=== PATIENT | female | born 1950 | race Caucasian/White ===

== ENCOUNTER 2017-12-15 16:09 | Emergency (ER) | payer OTHER, BC ==
[~2017-12-15] VITALS: Ht 160 cm; Wt 77.7 kg
[~2017-12-15 16:09] MED LIST: ASPIR 8181 M1 PO; ASPIR-LOW81 M1 PO; CELEXA40 MG PO; CRESTOR20 MG PO; CYMBALTA60 MG PO; DESYREL 150 MG150 MG PO; GAS-X125 MG PO; HYDROCHLOROTHIA25 MG PO; LIPITOR20 MG PO; LOTENSIN10 MG PO; Mylicon,Mylanta Gas, PO; NABUMETONE500 MG PO; NIACIN750 MG PO; NIASPAN,SLO-NI750 MG PO; NORCO 7.5/321 TABLET PO; PAIN & FEVER500 MG PO; PANTOPRAZOLE SO40 MG PO; PRILOSEC20 MG PO; PROMETHAZINE HC25 M1 PO; Phenergan PO; Protonix PO; SPIRIVA1 INHALATI IH; Tylenol Extra Streng PO; VITAMIN D-32000 UNI1 PO; VITAMIN D1000 UNIT PO; ZICAM BOTH NARES; [UNRECOGNIZED DRUG - REMARK] TP
[2017-12-15 16:45] LABS: HEMATOCRIT 35.5 % (36.0-46.0); MCH 27.3 PG (29.0-34.0); MCHC 33.8 G/DL (30.0-36.0); MCV 80.9 FL (83-99); PLATELET COUNT 295 K/uL (156-360); RBC DIS.WIDTH-CV 13.9 % (11.8-14.6); RBC DIS.WIDTH-SD 40.8 % (39-53); RED BLOOD COUNT 4.39 M/uL (3.80-5.20); WHITE BLOOD COUNT 10.4 K/uL (4.1-10.2)
[2017-12-15 16:56] LABS: ALBUMIN 4.2 g/dL (3.2-4.8); CHLORIDE 94 mEq/L (99-109); POTASSIUM 3.5 mEq/L (3.7-5.4); SODIUM 131 mEq/L (136-147)
[2017-12-15 16:59] LABS: GLUCOSE 120 mg/dL (70-99); TOTAL PROTEIN 7.1 g/dL (6.4-8.3)
[2017-12-15 17:01] LABS: TOTAL BILIRUBIN 0.4 mg/dL (0.0-1.0)
[2017-12-15 17:02] LABS: ALKALINE PHOSPHATASE 74 IU/L (3-129); CREATININE 0.9 mg/dL (0.6-1.3); GFR ESTIMATE (CALCULATED) > 59 mL/min/
[2017-12-15 17:03] LABS: UREA NITROGEN (BUN) 26 mg/dL (9-23)
[2017-12-15 17:04] LABS: AST (GOT) 14 IU/L (2-34)
[2017-12-15 17:05] LABS: ALT (GPT) 12 IU/L (3-49)
[2017-12-15 17:08] LABS: TROP-I INTERPRETATION NEGATIVE; TROPONIN-I < 0.01 ng/mL (0.0-0.30)
[2017-12-15 17:23] LABS: APPEARANCE CLEAR ((CLEAR)); BILIRUBIN NEGATIVE; BLOOD NEGATIVE; COLOR YELLOW ((YELLOW)); GLUCOSE (STRIP) NEGATIVE; KETONES NEGATIVE; LEUKOCYTES NEGATIVE; NITRITE NEGATIVE; PROTEIN (STRIP) NEGATIVE; SPECIFIC GRAVITY 1.008 (1.000-1.030); UCUL ADDED? NO; UROBILINOGEN 0.2 MG/DL (0.2-1.0)
[2017-12-15] MEDS ORDERED: COMPAZINE10 MG PO (18:22)
[2017-12-15] MEDS ORDERED: ZOFRAN4 MG PO (18:22)
[2017-12-15 18:50] VITALS: BP 107/88
== END 2017-12-15 19:15 | disposition home or self-care (01) ==
LOC: EME 16:09
DX: K21.9 Gastro-esophageal reflux disease without esophagitis (principal); K44.9 Diaphragmatic hernia without obstruction or gangrene; R11.0 Nausea; I10 Essential (primary) hypertension; J44.9 Chronic obstructive pulmonary disease, unspecified; Z79.82 Long term (current) use of aspirin; F17.200 Nicotine dependence, unspecified, uncomplicated
CPT/HCPCS: 80053; 81003; 84484; 85027; 93005; 99281; 99284; J0780; J2405; J3010